=== PATIENT | female | born 1985 | race Caucasian/White ===

== ENCOUNTER 2018-08-22 10:00 | Inpatient (IN) ==
[2018-08-22] MEDS ORDERED: ZOFRAN IV PRN (11:49)
[2018-08-22] MEDS ORDERED: SENOKOT PO PRN (11:49)
[2018-08-22] MEDS ORDERED: PHENOBARBITAL IV PRN (11:49)
[2018-08-22] MEDS ORDERED: MAALOX PLUS LIQUID PO PRN (11:49)
[2018-08-22] MEDS ORDERED: TUBERSOL ID ONE (11:49)
[2018-08-22] MEDS ORDERED: ZOFRAN IM PRN (11:49)
[2018-08-22] MEDS ORDERED: DULCOLAX PR PRN (11:49)
[2018-08-22] MEDS ORDERED: D5W 1,000 ML IV PRN (11:49)
[2018-08-22] MEDS ORDERED: DESYREL PO PRN (11:49)
[2018-08-22] MEDS ORDERED: MOTRIN PO PRN (11:49)
[2018-08-22] MEDS ORDERED: SEROQUEL PO PRN (11:49)
[2018-08-22] MEDS ORDERED: NICOTINE GUM BUCCAL PRN (11:49)
[2018-08-22] MEDS ORDERED: IMODIUM PO PRN ×2 (11:49)
[2018-08-22] MEDS ORDERED: TYLENOL PO PRN (11:49)
[2018-08-22] MEDS ORDERED: SINEMET 25/100 PO PRN (12:10)
[2018-08-22] MEDS ORDERED: ROBAXIN PO PRN (12:10)
[2018-08-22] MEDS ORDERED: BENTYL PO PRN (12:10)
[2018-08-22] MEDS ORDERED: ATARAX PO PRN (12:10)
[2018-08-22] MEDS: NICODERM PATCH TD PRN (12:20)
[2018-08-22 12:26] LABS: HEMATOCRIT 38.8 % (37.0-47.0); HEMOGLOBIN 13.2 g/dL (12.0-16.0); MCV 91.1 FL (81-99); MPV 9.5 FL (7.4-10.4); RBC 4.26 XMIL (4.2-5.4); RDW 12.5 % (11.5-14.5); WBC 5.67 X1000 (4.8-10.8)
[2018-08-22 12:34] LABS: INR 1.03
[2018-08-22 12:45] LABS: AGAP 11; ALBUMIN 3.8 g/dL (3.5-5.0); ALKALINE PHOSPHATASE 80 U/L (32-104); AMYLASE 21 U/L (20-200); BUN 7 mg/dL (8-22); CALCIUM 8.9 mg/dL (8.8-10.2); CHLORIDE 101 mmol/L (98-107); COSMO 274; CREATININE 0.7 mg/dL (0.5-0.9); ESTIMATED GFR > 60; GLUCOSE 99 mg/dL (70-104); GOT 12 U/L (10-30); GPT 7 U/L (10-36); LIPASE 19 U/L (13-60); POTASSIUM 3.9 mmol/L (3.5-5.1); SODIUM 138 mmol/L (136-145); TCO2 26 mmol/L (25-35); TOTAL PROTEIN 6.5 g/dL (6.3-8.3)
[2018-08-22 13:07] LABS: URINE SOURCE CLEAN CATCH
[2018-08-22 13:52] LABS: UR AMPHETAMINES QUAL PRESUMPTIVE POSITIVE (NONE DETECT); UR BARBITUATES QUAL NONE DETECTED (NONE DETECT); UR BENZODIAZEPIN QUAL NONE DETECTED (NONE DETECT); UR CANNABINOIDS QUAL PRESUMPTIVE POSITIVE (NONE DETECT); UR COCAINE QUAL NONE DETECTED (NONE DETECT); UR METHADONE QUAL NONE DETECTED (NONE DETECT); UR METHAMPHETAMINE QUAL NONE DETECTED (NONE DETECT); UR OPIATES QUAL NONE DETECTED (NONE DETECT); UR OXYCODONE QUAL NONE DETECTED (NONE DETECT); UR PCP QUAL NONE DETECTED (NONE DETECT); UR PROPOXYPHENE QUAL NONE DETECTED (NONE DETECT); UR TCA QUAL NONE DETECTED (NONE DETECT)
[2018-08-22 13:55] LABS: BILIRUBIN URINE NEGATIVE (NEGATIVE); BLOOD URINE NEGATIVE (NEGATIVE); CLARITY SL. CLOUDY (CLEAR); COLOR YELLOW; GLUCOSE URINE NEGATIVE (NEGATIVE); KETONE URINE TRACE mg/dL (NEGATIVE); LEUKOCYTES URINE TRACE (NEGATIVE); NITRITE URINE POSITIVE (NEGATIVE); PROTEIN URINE NEGATIVE (NEGATIVE); SP GRAVITY URINE 1.015; UROBILINOGEN URINE NORMAL
[2018-08-22 14:09] LABS: URINE BACTERIA 3+ /HFP; URINE EPITHELIAL CELLS <10 /HPF (<10)
[2018-08-22 14:10] LABS: URINE CAST NONE SEEN /LPF; URINE CRYSTAL NONE SEEN /HPF; URINE WBC <10 /HPF (<10); URINE YEAST NONE SEEN /HPF
[2018-08-22] MEDS: SUBOXONE 2 MG/0.5 MG FILM SL SCH (17:20)
[2018-08-22] MEDS: LIBRIUM PO PRN (20:56)
[2018-08-23] MEDS: PROTONIX PO SCH (06:00)
[2018-08-23] MEDS: SUBOXONE 2 MG/0.5 MG FILM SL SCH ×2 (06:00→18:30)
[2018-08-23] MEDS: VITAMIN B-1 PO SCH (10:43)
[2018-08-23] MEDS: FOLIC ACID PO SCH (10:43)
[2018-08-23] MEDS: THERA M PLUS PO SCH (10:43)
[2018-08-23] MEDS: ATARAX PO PRN (18:38)
[2018-08-23] MEDS: ZOFRAN ODT PO PRN (18:38)
[2018-08-23] MEDS: NICODERM PATCH TD PRN (18:39)
[2018-08-23] MEDS: LIBRIUM PO PRN (22:07)
--- NOTE | 2018-08-23 23:56 | PROGRESS NOTE ---
DATE: 08/23/2018 SUBJECTIVE: Patient overall states that she is feeling a little bit better on Suboxone. States that she feels as though that she would like to go home on this. Denies any chest pain, palpitations. Denies any fevers or chills. OBJECTIVE: Vital signs: She is afebrile. Vital signs stable. General: Patient is awake, alert. She is in no distress. HEENT: Normocephalic. Neck: Supple. CARDIOVASCULAR: Regular rate. Chest: Clear. Abdomen: Soft. Extremities: Moves all extremities. ASSESSMENT: 1. Nausea, vomiting. 2. Abdominal pain. 3. Myalgias. 4. Paresthesias. 5. Paroxysmal sweating. PLAN: We will continue patient in the hospital. Continue Suboxone. Further orders as needed. cc: Roe Paiz MD
[2018-08-24] MEDS: ATARAX PO PRN ×2 (02:43→19:22)
[2018-08-24] MEDS: PROTONIX PO SCH (06:07)
[2018-08-24] MEDS: SUBOXONE 2 MG/0.5 MG FILM SL SCH ×2 (06:08→17:25)
[2018-08-24] MEDS ORDERED: SUBOXONE 2 MG/0.5 MG FILM SL SCH (07:00)
[2018-08-24] MEDS ORDERED: SUBOXONE 2 MG/0.5 MG FILM SL ONE (07:15)
[2018-08-24] MEDS: VITAMIN B-1 PO SCH (08:56)
[2018-08-24] MEDS: THERA M PLUS PO SCH (08:57)
[2018-08-24] MEDS: FOLIC ACID PO SCH (08:57)
[2018-08-24] MEDS: ZOFRAN ODT PO PRN ×2 (09:04→17:31)
[2018-08-24] MEDS: NICODERM PATCH TD PRN (20:21)
--- NOTE | 2018-08-24 22:42 | PROGRESS NOTE ---
DATE: 08/24/2018 SUBJECTIVE: Patient states she is not feeling quite as good this morning as she was yesterday. She is having lots of nausea and, in fact, she is also quite sleepy. PHYSICAL EXAMINATION: Vital Signs: Reviewed. Temperature 98 degrees, pulse 83, respiratory 18, BP 127/69. General: Patient is very somnolent on exam. She is difficult to keep awake. HEENT: Normocephalic. Neck: Supple. Cardiovascular: Regular rate. Chest: Clear. Abdomen: Soft. Extremities: Moves all extremities. ASSESSMENT: 1. Somnolence. Uncertain if this is due to Suboxone. We will certainly not increase and may have to hold her dose if she does not wake up. 2. Amphetamine use. 3. Nausea, vomiting. 4. Abdominal pain. PLAN: We will continue patient in the hospital. Continue counseling when she is more awake, and will follow. Hopefully, home over the next day or two. cc: Roe Paiz MD
[2018-08-25] MEDS: PROTONIX PO SCH (06:30)
[2018-08-25] MEDS: SUBOXONE 2 MG/0.5 MG FILM SL SCH (06:30)
[2018-08-25 07:56] VITALS: BP 130/66
[2018-08-25] MEDS: VITAMIN B-1 PO SCH (09:07)
[2018-08-25] MEDS: FOLIC ACID PO SCH (09:07)
[2018-08-25] MEDS: THERA M PLUS PO SCH (09:07)
--- NOTE | 2018-08-28 18:20 | HISTORY AND PHYSICAL ---
CHIEF COMPLAINT: Nausea, vomiting. HISTORY OF PRESENT ILLNESS: Patient is a 32-year-old female who presented to [facility] secondary to nausea, vomiting, abdominal pain. Notes that she has been using illegal substances. Each time she tries to stop withdrawal symptoms become too severe and she needs help getting her life back under control. She notes that she has been on Suboxone in the past and at that point she was not using and abusing anything including amphetamines. However she stopped Suboxone because she thought she could handle it without it and unfortunately that was not the case. SOCIAL HISTORY: Patient is single. She is currently unemployed, lives at home in [place]. PAST MEDICAL HISTORY: Positive for paranoid schizophrenia, anxiety, depression, she has had blackouts that were drug-related, history of asthma. MEDICATIONS: None. ALLERGIES: None. REVIEW OF SYSTEMS: CINA score is 11 secondary to nausea, vomiting, abdominal pain, restlessness, anxiety, myalgias, frequent changes in temperature, hot and cold sweats. Denies any fevers, denies cough, congestion or other upper respiratory type symptoms. Denies dysuria, frequency, urgency, denies polyuria, polydipsia. SUBSTANCE ABUSE HISTORY: The patient was in treatment facility at [facility] for 21 days in 2012 remained sober for 5 years. She went back to [facility] in [place] in 2018 for 15 days and relapsed almost immediately. Notes that she does not want drugs to destroy her life like they did previously. Started marijuana at age 11 currently smokes once a week or so. Started depressants at age 13 has not used in over a year. Started stimulants at age 16, currently using IV methamphetamine 5 to 6 times a day. Started opiates at age 17 has not used in 3 years. Started smoking at age 12 currently smokes pack a day. FAMILY HISTORY: Noncontributory. PHYSICAL: Vital Signs: Reviewed and stable, she is awake, alert, she is in no current respiratory distress. HEENT: Normocephalic. Neck: Supple. CV: Regular rate, no murmurs. Chest: Clear, nonlabored. Abdomen: Soft, nondistended. Extremities: Moves all extremities. Neuro: No focal changes, patient is awake, alert, oriented although she is fidgety, nervous, anxious, moving about frequently in the exam room. She is unable to answer questions directly and has to be refocused to answer questions. LABS: Pending. ASSESSMENT: 1. Nausea, vomiting. 2. Abdominal pain . 3. Myalgias. 4. Paresthesias. 5. Paroxysmal sweating. 6. Amphetamine use and abuse. 7. Chronic tobacco abuse. PLAN: Will admit patient the hospital, begin treatment with Suboxone as she notes that this kept her from using and abusing in the past. Will begin counseling, further orders as needed. cc: Roe Paiz MD
--- NOTE | 2018-08-28 19:01 | DISCHARGE SUMMARY ---
ADMISSION DATE: 08/22/2018 DISCHARGE DATE: 08/25/2018 DISCHARGE DIAGNOSES: 1. Nausea/vomiting. 2. Abdominal pain. 3. Myalgias. 4. Paresthesias. 5. Frequent sweating. 6. Amphetamine use and abuse. 7. Chronic tobacco use and abuse. 8. Bipolar. 9. Blackouts secondary to substance abuse. CONSULTATIONS: None. PROCEDURES: None. BRIEF HOSPITAL COURSE: Patient is a 32-year-old female, who presented to [facility] secondary to nausea/vomiting, abdominal pain, myalgias, paresthesias. She has been using and abusing amphetamine and notes that it is slowly destroying her life. She has been stable on Suboxone in the past until she had stopped and then relapsed fairly quickly afterwards. We admitted her to the hospital, began treatment with medication-assisted therapy, Suboxone. The patient did quite well. Counseling was performed each day by me. DISPOSITION: Patient will be discharged home. FOLLOW-UP: She will follow up outpatient with treatment facility of choice. DISCHARGE INSTRUCTIONS: Discussed with her the use of Suboxone. She currently is on 4/1 mg daily. Discussed that she needs to avoid all persons, places, and situations with which she has been using and abusing in the past. She needs outpatient life counseling as well as drug counseling. cc: Roe Paiz MD
== END 2018-08-25 15:46 | disposition home or self-care (01) | DRG 897 ==
LOC: P.MEDSURG 10:37
PROVIDERS: ADMIT Family Medicine; ATTEND Family Medicine
CPT/HCPCS: 80053; 80104; 80301; 80305; 80307; 80320; 81001; 82055; 82150; 83690; 84703; 85027; 85610; A9270; G0431; G0434; G0477; G0480; G6040